=== PATIENT | female | born 1985 | race Caucasian/White ===

== ENCOUNTER 2018-10-02 14:20 | Observation (INO) | payer MEDICAID ==
[~2018-10-02] VITALS: Ht 170.2 cm; Wt 100.0 kg
[2018-10-02] MEDS ORDERED: SODIUM CHLORIDE 0.9% 1,000 ML IV ONE (14:54)
[2018-10-02 16:14] LABS: BASOPHILS % 0.3 % (0.0-2.0); EOSINOPHILS % 0.3 % (0.0-5.0); HEMATOCRIT. 36.1 % (36.0-48.0); LYMPHOCYTES % 31.8 % (20.0-50.0); MEAN CORPUSCULAR HEMOGLOBIN 31.1 pg (28.0-32.0); MEAN CORPUSCULAR VOLUME 93.8 fL (81.0-99.0); MEAN PLATELET VOLUME 7.5 fl (7.4-10.4); MONOCYTES % 5.8 % (2.0-8.0); NEUTROPHILS % 61.8 % (40.0-76.0); PLATELET 218 x1000/uL (130-400); RED BLOOD CELL COUNT 3.84 mill/uL (4.2-5.4); RED CELL DISTRIBUTION WIDTH 13.6 % (11.6-14.6)
[2018-10-02 16:22] LABS: CHLORIDE 104 mEq/L (98-107)
[2018-10-02 16:30] LABS: CLARITY URINE CLEAR (CLEAR); COLOR URINE YELLOW (YELLOW); KETONES URINE 2+ (NEGATIVE); LEUKOCYTE ESTERASE URINE NEGATIVE (NEGATIVE); NITRITE URINE NEGATIVE (NEGATIVE); OCCULT BLOOD URINE NEGATIVE (NEGATIVE); PROTEIN URINE NEGATIVE (NEGATIVE); UROBILINOGEN URINE 0.2 E.U./dL (0.2-1.0)
[2018-10-02 16:45] LABS: B-HCG QUANTITATIVE 26607 mIU/mL (<3)
[2018-10-02 17:07] VITALS: BP 136/71
[2018-10-02] MEDS ORDERED: ACETAMINOPHEN 500MG TABLET PO NR (19:15)
== END 2018-10-02 19:55 | disposition home or self-care (01) ==
LOC: ER 14:20 → EDSTATUS 17:54 → 8 EST LDRP 17:57
PROVIDERS: ADMIT Obstetrics & Gynecology; ATTEND Obstetrics & Gynecology
DX: O26.893 Other specified pregnancy related conditions, third trimester (principal); M54.5 Low back pain; R55 Syncope and collapse; Z3A.33 33 weeks gestation of pregnancy
CPT/HCPCS: 36415; 80048; 81003; 84702; 85025; 93005; G0378; J7030

== ENCOUNTER 2018-11-19 08:16 | Inpatient (IN) | payer MEDICAID ==
[~2018-11-19] VITALS: Ht 170.2 cm; Wt 103.4 kg
[2018-11-19] MEDS ORDERED: LIDOCAINE HCL 2%/EPINEPHRINE 1:100,000 20 ML VIAL INFIL ONE (09:30)
[2018-11-19] MEDS ORDERED: MISOPROSTOL 100MCG TABLET VG SCH (09:30)
[2018-11-19] MEDS ORDERED: CARBOPROST TROMETHAMINE 250 MCG/ML AMPUL IM PRN (09:30)
[2018-11-19] MEDS ORDERED: SODIUM CHLORIDE 0.9% 10ML VIAL ONE (09:30)
[2018-11-19] MEDS ORDERED: LIDOCAINE HCL 1% 20ML VIAL (Pyxis) INJ INFIL SCH (09:30)
[2018-11-19] MEDS ORDERED: BUTORPHANOL TARTRATE 2 MG/ML VIAL IV PRN (09:30)
[2018-11-19] MEDS ORDERED: METHYLERGONOVINE MALEATE 0.2 MG/ML IM PRN (09:30)
[2018-11-19] MEDS ORDERED: NALOXONE HCL 0.4 MG/ML 1ML VIAL IM PRN (09:30)
[2018-11-19] MEDS: LACTATED RINGERS 1,000 ML IV SCH ×2 (09:54→09:55)
[2018-11-19 10:10] LABS: BASOPHILS % 0.5 % (0.0-2.0); EOSINOPHILS % 0.5 % (0.0-5.0); HEMATOCRIT. 36.2 % (36.0-48.0); HEMOGLOBIN. 11.8 g/dL (12.0-16.0); LYMPHOCYTES % 24.7 % (20.0-50.0); MEAN CORPUSCULAR HEMOGLOBIN 29.9 pg (28.0-32.0); MEAN PLATELET VOLUME 8.2 fl (7.4-10.4); MONOCYTES % 4.6 % (2.0-8.0); NEUTROPHILS % 69.7 % (40.0-76.0); PLATELET 241 x1000/uL (130-400); RED BLOOD CELL COUNT 3.94 mill/uL (4.2-5.4); RED CELL DISTRIBUTION WIDTH 14.1 % (11.6-14.6)
[2018-11-19 10:11] LABS: CLARITY URINE CLEAR (CLEAR); COLOR URINE YELLOW (YELLOW); INR 0.9; KETONES URINE NEGATIVE (NEGATIVE); LEUKOCYTE ESTERASE URINE 1+ (NEGATIVE); NITRITE URINE NEGATIVE (NEGATIVE); OCCULT BLOOD URINE NEGATIVE (NEGATIVE); PARTIAL THROMBOPLASTIN TIME 28.5 sec (23.4-31.0); PROTEIN URINE NEGATIVE (NEGATIVE); PROTHROMBIN TIME 9.4 sec (9.1-11.1); SPECIFIC GRAVITY URINE 1.018 (1.005-1.030); UROBILINOGEN URINE 0.2 E.U./dL (0.2-1.0)
[2018-11-19] MEDS ORDERED: BUPIVACAINE HCL/NS/PF EPIDURAL 100 ML EP SCH (10:30)
[2018-11-19 10:52] LABS: *AMPHETAMINES SCREEN URINE NEGATIVE (NEGATIVE)
[2018-11-19 10:53] LABS: *BARBITURATES SCREEN URINE NEGATIVE (NEGATIVE)
[2018-11-19 10:54] LABS: *COCAINE SCREEN URINE NEGATIVE (NEGATIVE)
[2018-11-19] MEDS: DEXT 5%/LR + PITOCIN 20UNITS/L 1,000 ML IV SCH ×2 (10:55→12:59)
[2018-11-19 10:57] LABS: *BENZODIAZEPINES SCREEN URINE NEGATIVE (NEGATIVE); METHADONE URINE SCREEN NEGATIVE (NEGATIVE)
[2018-11-19 10:58] LABS: CANNABINOID URINE SCREEN NEGATIVE (NEGATIVE); OPIATES URINE SCREEN NEGATIVE (NEGATIVE); PHENCYCLIDINE URINE SCREEN NEGATIVE (NEGATIVE)
[2018-11-19 12:38] LABS: HEPATITIS B SURFACE ANTIGEN NEGATIVE
[2018-11-19] MEDS ORDERED: DEXT 5%/LR + PITOCIN 20UNITS/L 1,000 ML IV SCH (12:43)
[2018-11-19] MEDS ORDERED: LANOLIN OINT 0.25 GM TUBE TOP PRN (12:45)
[2018-11-19] MEDS ORDERED: TETANUS, DIPHTHERIA, PERTUSSIS VAC/PF 0.5ML (>7YR OLD) IM ONE (12:45)
[2018-11-19] MEDS ORDERED: HEMORRHOIDAL SUPP PR PRN (12:45)
[2018-11-19] MEDS ORDERED: BISACODYL 10MG SUPP PR PRN (12:45)
[2018-11-19] MEDS ORDERED: IBUPROFEN 400MG TABLET PO PRN (12:45)
[2018-11-19] MEDS ORDERED: GLYCERIN/WITCH HAZEL LEAF MEDICATED PAD TOP PRN (12:45)
[2018-11-19] MEDS ORDERED: INFLUENZA VIRUS VACCINE(AFLURIA) 0.5ML SYR IM ONE (12:45)
[2018-11-19] MEDS ORDERED: DIPHENHYDRAMINE 25MG CAPSULE PO PRN (12:45)
[2018-11-19] MEDS: IBUPROFEN 800MG TABLET PO PRN (12:59)
[2018-11-19 15:00] VITALS: BP 115/57
[2018-11-19] MEDS: ACETAMINOPHEN WITH CODEINE 300/30MG TABLET PO PRN (15:31)
[2018-11-19 17:00] VITALS: BP 110/58
[2018-11-19] MEDS: SIMETHICONE 80MG TABLET CHEW PO SCH ×2 (18:00→20:39)
[2018-11-19 20:20] VITALS: BP 99/71
[2018-11-19] MEDS: DOCUSATE SODIUM 100MG CAPSULE PO SCH (20:40)
[2018-11-20 04:40] VITALS: BP 102/56
[2018-11-20 07:38] LABS: BASOPHILS % 0.4 % (0.0-2.0); EOSINOPHILS % 1.4 % (0.0-5.0); HEMATOCRIT. 31.1 % (36.0-48.0); HEMOGLOBIN. 10.4 g/dL (12.0-16.0); LYMPHOCYTES % 26.5 % (20.0-50.0); MEAN CORPUSCULAR HEMOGLOBIN 30.6 pg (28.0-32.0); MEAN CORPUSCULAR VOLUME 91.7 fL (81.0-99.0); MEAN PLATELET VOLUME 7.4 fl (7.4-10.4); MONOCYTES % 5.6 % (2.0-8.0); NEUTROPHILS % 66.1 % (40.0-76.0); PLATELET 191 x1000/uL (130-400); RED BLOOD CELL COUNT 3.39 mill/uL (4.2-5.4); RED CELL DISTRIBUTION WIDTH 14.4 % (11.6-14.6)
[2018-11-20 08:00] VITALS: BP 107/69
[2018-11-20] MEDS: PRENATAL VIT/FE FUMARATE/FA TABLET PO SCH (09:10)
[2018-11-20] MEDS: FERROUS SULFATE 325MG TABLET PO SCH ×3 (09:11→13:14)
[2018-11-20] MEDS: IBUPROFEN 800MG TABLET PO PRN (09:11)
[2018-11-20] MEDS: SIMETHICONE 80MG TABLET CHEW PO SCH ×4 (09:12→18:00)
[2018-11-20] MEDS ORDERED: MEDROXYPROGESTERONE ACETATE 150MG/ML VIAL IM NR (11:00)
[2018-11-20] MEDS: ACETAMINOPHEN WITH CODEINE 300/30MG TABLET PO PRN ×3 (13:14→21:19)
[2018-11-20 14:55] VITALS: BP 108/67
[2018-11-20 20:00] VITALS: BP 126/60
[2018-11-20] MEDS: DOCUSATE SODIUM 100MG CAPSULE PO SCH (21:19)
[2018-11-21] MEDS: IBUPROFEN 800MG TABLET PO PRN ×2 (01:10→09:27)
[2018-11-21 03:29] VITALS: BP 97/53
[2018-11-21] MEDS: SIMETHICONE 80MG TABLET CHEW PO SCH ×2 (06:47→09:27)
[2018-11-21] MEDS: ACETAMINOPHEN WITH CODEINE 300/30MG TABLET PO PRN (06:47)
[2018-11-21 08:00] VITALS: BP 114/75
[2018-11-21] MEDS: PRENATAL VIT/FE FUMARATE/FA TABLET PO SCH (09:26)
[2018-11-21] MEDS: FERROUS SULFATE 325MG TABLET PO SCH (09:26)
== END 2018-11-21 11:00 | disposition home or self-care (01) | DRG 560 ==
LOC: OBSVTOIN 08:16 → 8 EST LDRP 08:16 → 8EST 14:08
PROVIDERS: ADMIT Specialist; ATTEND Specialist
PROC: 10E0XZZ Delivery of Products of Conception, External Approach (ICD-10-PCS; principal; 2018-11-19)
PROC: 3E0R3BZ Introduction of Anesthetic Agent into Spinal Canal, Percutaneous Approach (ICD-10-PCS; 2018-11-19)
PROC: 00HU33Z Insertion of Infusion Device into Spinal Canal, Percutaneous Approach (ICD-10-PCS; 2018-11-19)
DX: O77.0 Labor and delivery complicated by meconium in amniotic fluid (principal); D64.9 Anemia, unspecified; O90.81 Anemia of the puerperium; Z37.0 Single live birth; Z3A.40 40 weeks gestation of pregnancy
CPT/HCPCS: 36415; 80305; 86592; 86703; 86762; 86850; 86900; 87340; 99281; J1050; J2590; J3490; A4315

== ENCOUNTER 2020-04-26 14:18 | Emergency (ER) | payer MEDICAID ==
[~2020-04-26] VITALS: Ht 172.7 cm; Wt 100.0 kg
[2020-04-26] MEDS ORDERED: LIDOCAINE 1%/EPI 1:100,000 10 ML VIAL IJ ONE (15:30)
[2020-04-26] MEDS ORDERED: BACITRACIN ZINC OINT UDPKT TOP ONE (15:30)
[2020-04-26] MEDS ORDERED: LIDOCAINE HCL/EPINEPHRINE 1%-EPI 1:100,000 20 ML VIAL INFIL ONE (15:45)
[2020-04-26 16:45] VITALS: BP 138/79
== END 2020-04-26 16:47 | disposition home or self-care (01) ==
LOC: ER 14:18
DX: S71.112A Laceration without foreign body, left thigh, initial encounter (principal); W26.8XXA Contact with other sharp object(s), not elsewhere classified, initial encounter; Y93.9 Activity, unspecified; Y92.89 Other specified places as the place of occurrence of the external cause
CPT/HCPCS: 12002; 99283; J3490

== ENCOUNTER 2023-11-03 08:53 | Emergency (ER) | payer MEDICAID, OTHER ==
[~2023-11-03] VITALS: Ht 167.6 cm; Wt 91.0 kg
[2023-11-03 09:06] VITALS: BP 169/79; PULSE 100; RESP 16; O2SAT 100
[2023-11-03 10:30] VITALS: TEMP 98.4
[2023-11-03] MEDS ORDERED: ACETAMINOPHEN 325MG TABLET PO ONE (10:30)
[2023-11-03 11:16] LABS: CLARITY URINE CLOUDY (CLEAR); COLOR URINE YELLOW (YELLOW); GLUCOSE URINE NEGATIVE (NEGATIVE); KETONES URINE NEGATIVE (NEGATIVE); LEUKOCYTE ESTERASE URINE 1+ (NEGATIVE); NITRITE URINE NEGATIVE (NEGATIVE); OCCULT BLOOD URINE NEGATIVE (NEGATIVE); PH URINE 5.5 (4.5-8.0); PROTEIN URINE NEGATIVE (NEGATIVE)
[2023-11-03 11:35] LABS: BACTERIA URINE 2+; RBC URINE 0-2 /hpf (0-2); SQUAMOUS EPITHELIAL CELL URINE 2+ /lpf (RARE/1+); YEAST URINE NONE SEEN
[2023-11-03] MEDS ORDERED: NITR-87 MT (14:21)
[2023-11-03] MEDS ORDERED: TOPUD MT (14:21)
[2023-11-03] MEDS ORDERED: IBUP-1525 MT (14:21)
== END 2023-11-03 14:31 | disposition home or self-care (01) ==
LOC: ER 08:53
DX: S30.0XXA Contusion of lower back and pelvis, initial encounter (principal); X58.XXXA Exposure to other specified factors, initial encounter; Y93.89 Activity, other specified; Y92.89 Other specified places as the place of occurrence of the external cause; Y99.8 Other external cause status
CPT/HCPCS: 72110; 81003; 81025; 99284